=== PATIENT | male | born 1935 | race Caucasian/White ===

== ENCOUNTER → 2020-07-04 | Outpatient (CLI) | payer MEDICARE, OTHER ==
[~2020-07-04] MED LIST: ASCO500 PO; ASPI325 PO; ASPI325EC PO; ASPIR 8181 M1 PO; ATOR20 PO; CHOL10002 PO; Coumadin4 MG PO; DOCU100 PO; Hair, Skin & N1 EACH PO; IBUP800 PO; Isosorbide Mono30 MG PO; METO25ER PO; METO50ER PO; METOPROLOL SUCC25 MG PO; OXYC5 PO; Super B Comple150 MG PO; Toprol Xl50 MG PO; VIT1CAPS12 PO; WARF4 PO
[2020-07-04 11:04] LABS: BASOPHILS ABSOLUTE AUTO 0.05 K/mm3 (0.00-0.23); BASOPHILS PERCENT AUTO 1 % (0-2); EOSINOPHILS ABSOLUTE AUTO 0.09 K/mm3 (0.00-0.68); EOSINOPHILS PERCENT AUTO 2 % (0-6); Hematocrit 42.7 % (37.0-53.0); Hemoglobin 14.9 g/dL (13.5-17.5); IMMATURE GRAN ABSOLUTE AUTO 0.03 K/mm3 (0.00-0.10); IMMATURE GRAN PERCENT AUTO 1 % (0-1); LYMPHOCYTES ABSOLUTE AUTO 1.31 K/mm3 (0.84-5.20); LYMPHOCYTES PERCENT AUTO 23 % (21-46); MONOCYTES ABSOLUTE AUTO 0.38 K/mm3 (0.16-1.47); MONOCYTES PERCENT AUTO 7 % (4-13); Mean Corpuscular HGB 32.3 pg (26.0-34.0); Mean Corpuscular HGB Conc 34.9 g/dL (31.5-36.5); Mean Corpuscular Volume 93 fL (80-100); Mean Platelet Volume 9.4 fL (9.1-12.4); NEUTROPHILS ABSOLUTE AUTO 3.85 K/mm3 (1.96-9.15); NEUTROPHILS PERCENT AUTO 67 % (41-73); Platelet Count 285 K/mm3 (150-400); RDW Coefficient Variation 12.2 % (11.7-14.2); RDW Standard Deviation 41.1 fL (35.1-46.3); Red Blood Cell Count 4.61 M/mm3 (4.30-5.90); White Blood Cell Count 5.71 K/mm3 (4.00-11.30)
[2020-07-04 11:38] LABS: Alanine Aminotransfer (ALT/SGP 27 U/L (12-78); Albumin, Blood 3.9 g/dL (3.4-5.0); Alk Phos 73 U/L (40-126); Anion Gap 8 mmol/L (6-16); Aspartate Aminotrans (AST/SGOT 21 U/L (12-37); Bilirubin, Total 0.7 mg/dL (0.1-1.0); Blood Urea Nitrogen 18 mg/dL (8-24); Bun/Creatinine Ratio 20.2 (12.0-20.0); CO2, Blood 27 mmol/L (21-32); Calcium, Blood 9.3 mg/dL (8.5-10.1); Chloride, Blood 102 mmol/L (98-108); Creatinine, Blood 0.89 mg/dL (0.60-1.20); Globulin, Blood 3.8 g/dL (2.2-4.0); Glomerular Filtration Rate >60 (60-); Glucose, Blood 139 mg/dL (70-99); Magnesium, Blood 1.8 mg/dL (1.6-2.4); Sodium, Blood 137 mmol/L (136-145); Thyroid Stimulating Hormone 2.588 uIU/mL (0.360-4.800); Total Protein, Blood 7.7 g/dL (6.4-8.2)
[2020-07-04 11:39] LABS: Troponin I <0.017 ng/mL (0.000-0.040)
== END ==
LOC: LAB EV 10:57 → LAB SHORT 10:57
PROVIDERS: Physician Assistant Medical
DX: R53.83 Other fatigue (principal); R07.9 Chest pain, unspecified; R06.00 Dyspnea, unspecified
CPT/HCPCS: 80053; 83735; 83880; 84443; 84484; 85025

== ENCOUNTER 2021-02-23 10:12 | Emergency (ER) | payer MEDICARE, OTHER ==
[~2021-02-23] VITALS: Ht 182.9 cm; Wt 102.1 kg
[2021-02-23 10:52] LABS: BASOPHILS ABSOLUTE AUTO 0.03 K/mm3 (0.00-0.23); BASOPHILS PERCENT AUTO 1 % (0-2); EOSINOPHILS ABSOLUTE AUTO 0.15 K/mm3 (0.00-0.68); EOSINOPHILS PERCENT AUTO 3 % (0-6); Hematocrit 39.3 % (37.0-53.0); Hemoglobin 13.8 g/dL (13.5-17.5); IMMATURE GRAN ABSOLUTE AUTO 0.02 K/mm3 (0.00-0.10); IMMATURE GRAN PERCENT AUTO 0 % (0-1); LYMPHOCYTES ABSOLUTE AUTO 0.96 K/mm3 (0.84-5.20); LYMPHOCYTES PERCENT AUTO 19 % (21-46); MONOCYTES ABSOLUTE AUTO 0.46 K/mm3 (0.16-1.47); MONOCYTES PERCENT AUTO 9 % (4-13); Mean Corpuscular HGB 32.7 pg (26.0-34.0); Mean Corpuscular HGB Conc 35.1 g/dL (31.5-36.5); Mean Corpuscular Volume 93 fL (80-100); Mean Platelet Volume 9.4 fL (9.1-12.4); NEUTROPHILS ABSOLUTE AUTO 3.39 K/mm3 (1.96-9.15); NEUTROPHILS PERCENT AUTO 68 % (41-73); Platelet Count 174 K/mm3 (150-400); RDW Coefficient Variation 12.7 % (11.7-14.2); Red Blood Cell Count 4.22 M/mm3 (4.30-5.90); White Blood Cell Count 5.01 K/mm3 (4.00-11.30)
[2021-02-23 11:15] LABS: Alanine Aminotransfer (ALT/SGP 19 U/L (12-78); Albumin, Blood 3.6 g/dL (3.4-5.0); Alk Phos 64 U/L (50-136); Anion Gap 7 mmol/L (6-16); Aspartate Aminotrans (AST/SGOT 16 U/L (12-37); Bilirubin, Total 0.9 mg/dL (0.1-1.0); Blood Urea Nitrogen 25 mg/dL (8-24); Bun/Creatinine Ratio 24.3 (12.0-20.0); CO2, Blood 23 mmol/L (21-32); Calcium, Blood 8.6 mg/dL (8.5-10.1); Chloride, Blood 106 mmol/L (98-108); Creatinine, Blood 1.03 mg/dL (0.60-1.20); Globulin, Blood 3.5 g/dL (2.2-4.0); Glomerular Filtration Rate >60 (60-); Glucose, Blood 179 mg/dL (70-99); Potassium, Blood 3.5 mmol/L (3.5-5.5); Sodium, Blood 136 mmol/L (136-145); Total Protein, Blood 7.1 g/dL (6.4-8.2); Troponin I <0.015 ng/mL (0.000-0.040)
== END 2021-02-23 11:36 | disposition home or self-care (01) ==
LOC: ER 10:12
PROVIDERS: Emergency Medicine
DX: R06.00 Dyspnea, unspecified (principal); R19.7 Diarrhea, unspecified; Z79.82 Long term (current) use of aspirin
CPT/HCPCS: 36415; 71045; 80053; 83880; 84484; 85025; 93005; 93010; 99284-25

== ENCOUNTER 2022-04-03 17:01 | Emergency (ER) | payer MEDICARE, OTHER ==
[~2022-04-03] VITALS: Ht 182.9 cm; Wt 99.8 kg
[2022-04-03 19:28] LABS: BASOPHILS ABSOLUTE AUTO 0.05 K/mm3 (0.00-0.23); BASOPHILS PERCENT AUTO 1 % (0-2); EOSINOPHILS ABSOLUTE AUTO 0.12 K/mm3 (0.00-0.68); EOSINOPHILS PERCENT AUTO 2 % (0-6); Hematocrit 38.9 % (37.0-53.0); Hemoglobin 13.4 g/dL (13.5-17.5); IMMATURE GRAN ABSOLUTE AUTO 0.01 K/mm3 (0.00-0.10); IMMATURE GRAN PERCENT AUTO 0 % (0-1); LYMPHOCYTES ABSOLUTE AUTO 1.26 K/mm3 (0.84-5.20); LYMPHOCYTES PERCENT AUTO 22 % (21-46); MONOCYTES ABSOLUTE AUTO 0.37 K/mm3 (0.16-1.47); MONOCYTES PERCENT AUTO 6 % (4-13); Mean Corpuscular HGB 31.5 pg (26.0-34.0); Mean Corpuscular HGB Conc 34.4 g/dL (31.5-36.5); Mean Corpuscular Volume 92 fL (80-100); Mean Platelet Volume 9.4 fL (9.1-12.4); NEUTROPHILS ABSOLUTE AUTO 4.04 K/mm3 (1.96-9.15); NEUTROPHILS PERCENT AUTO 69 % (41-73); Platelet Count 201 K/mm3 (150-400); RDW Coefficient Variation 13.5 % (11.7-14.2); RDW Standard Deviation 45.5 fL (35.1-46.3); Red Blood Cell Count 4.25 M/mm3 (4.30-5.90); White Blood Cell Count 5.85 K/mm3 (4.00-11.30)
[2022-04-03 20:11] LABS: Albumin, Blood 3.5 g/dL (3.4-5.0); Albumin/Globulin Ratio 1.1 (0.8-1.8); Bilirubin, Total 0.6 mg/dL (0.1-1.0); Bun/Creatinine Ratio 30.3 (12.0-20.0); Calcium, Blood 8.9 mg/dL (8.5-10.1); Creatinine, Blood 0.76 mg/dL (0.60-1.20); Globulin, Blood 3.2 g/dL (2.2-4.0); Total Protein, Blood 6.7 g/dL (6.4-8.2)
[2022-04-03] MEDS ORDERED: Aspirin EC81 MG PO (22:01)
== END 2022-04-03 22:21 | disposition home or self-care (01) ==
LOC: ER 17:01
PROVIDERS: Emergency Medicine
DX: R07.89 Other chest pain (principal); R06.09 Other forms of dyspnea; Z79.899 Other long term (current) drug therapy; I25.10 Atherosclerotic heart disease of native coronary artery without angina pectoris
CPT/HCPCS: 71045; 80053; 83880; 84484; 85025; 93005; 93010; 99285-25; A9270

== ENCOUNTER 2023-03-20 13:04 | Inpatient (IN) | payer MEDICARE, OTHER ==
[~2023-03-20] VITALS: Ht 182.9 cm; Wt 93.3 kg
[~2023-03-20 13:04] MED LIST changes: +Aspirin EC81 MG PO
[2023-03-20 13:53] LABS: BASOPHILS ABSOLUTE AUTO 0.05 K/mm3 (0.00-0.23); BASOPHILS PERCENT AUTO 1 % (0-2); EOSINOPHILS ABSOLUTE AUTO 0.23 K/mm3 (0.00-0.68); EOSINOPHILS PERCENT AUTO 3 % (0-6); Hemoglobin 16.4 g/dL (13.5-17.5); IMMATURE GRAN ABSOLUTE AUTO 0.03 K/mm3 (0.00-0.10); IMMATURE GRAN PERCENT AUTO 0 % (0-1); LYMPHOCYTES ABSOLUTE AUTO 1.81 K/mm3 (0.84-5.20); LYMPHOCYTES PERCENT AUTO 20 % (21-46); MONOCYTES ABSOLUTE AUTO 0.53 K/mm3 (0.16-1.47); MONOCYTES PERCENT AUTO 6 % (4-13); Mean Corpuscular HGB 31.7 pg (26.0-34.0); Mean Corpuscular HGB Conc 35.7 g/dL (31.5-36.5); Mean Corpuscular Volume 89 fL (80-100); Mean Platelet Volume 9.7 fL (9.1-12.4); NEUTROPHILS ABSOLUTE AUTO 6.21 K/mm3 (1.96-9.15); NEUTROPHILS PERCENT AUTO 70 % (41-73); Platelet Count 221 K/mm3 (150-400); RDW Coefficient Variation 12.1 % (11.7-14.2); RDW Standard Deviation 39.7 fL (35.1-46.3); Red Blood Cell Count 5.18 M/mm3 (4.30-5.90); White Blood Cell Count 8.86 K/mm3 (4.00-11.30)
[2023-03-20 14:31] LABS: Albumin, Blood 3.7 g/dL (3.4-5.0); Albumin/Globulin Ratio 0.9 (0.8-1.8); Bilirubin, Total 1.5 mg/dL (0.1-1.0); Bun/Creatinine Ratio 23.1 (12.0-20.0); Calcium, Blood 9.3 mg/dL (8.5-10.1); Creatinine, Blood 1.21 mg/dL (0.60-1.20); Globulin, Blood 3.9 g/dL (2.2-4.0); Potassium, Blood 3.4 mmol/L (3.5-5.5); Total Protein, Blood 7.6 g/dL (6.4-8.2)
[2023-03-20 20:09] LABS: Anti-Xa UFH, PHA Monitoring <0.10 IU/mL; International Normalized Ratio 1.11; Prothrombin Time Results 11.6 Sec (9.7-11.5)
[2023-03-20] MEDS ORDERED: NEBIVOLOL HCL20 MG PO (20:33)
[2023-03-20] MEDS ORDERED: TRAM50 PO (20:36)
[2023-03-20] MEDS ORDERED: SPIRONOLACTONE25 MG PO (20:36)
[2023-03-20] MEDS ORDERED: FUROSEMIDE40 MG PO (20:36)
[2023-03-20] MEDS ORDERED: NEURONTIN300 MG PO (20:36)
--- NOTE | 2023-03-20 20:57 | NUR ---
CALL TO MD RECEIVED CALL FROM [facility] AND [facility] SCAN REPORT RECEIVED VIA FAX. COMMUNICATED IMPRESSION TO POLLO TREVINO AND WAS ADVISED TO ENSURE THAT THE HEPARIN GTT HAS BEEN STARTED PER PREVIOUS ORDER. UPDATED PRIMARY RN DARRYL WHO HAS YET TO RECEIVE THE PT FROM THE ED. VERIFIED THAT HEPARIN HAS BEEN CHARTED AGAINST BEING STARTED ALREADY.
[2023-03-20 21:20] VITALS: BP 132/63
[2023-03-20 23:35] VITALS: BP 123/56
[2023-03-21] VITALS (7 sets, daily range): BP systolic 89–121; BP diastolic 54–71
--- NOTE | 2023-03-21 05:24 | NUR ---
ADMIT / SHIFT SUMMARY PT TO UNIT VIA BED. AXO. PLEASANT. IN SR. NO CP / SOB. PT STATES THIS ONLY HAPPENS WITH EXERTION. PT ON HEPARIN GTT UPON ARRIVAL, ON HOLD FROM 0500 - 0600 THIS AM DUE TO LABS. NO OUTWARD S/SX BLEEDING NOTED. PT REMAINS ON RA. CONTINENT. VOIDING DARK YELLOW URINE. L DVT POSITIVE PER BEDSIDE ULTRASOUND. PT NPO SINCE MIDNIGHT THIS SHIFT JUST IN CASE OF PROCEDURE. OTHERISE, PT USING CALL LIGHT APPROPRIATELY. BED ALARM ON.
[2023-03-21 05:42] LABS: Bun/Creatinine Ratio 28.1 (12.0-20.0); Calcium, Blood 8.5 mg/dL (8.5-10.1); Magnesium, Blood 1.9 mg/dL (1.6-2.4); Potassium, Blood 3.5 mmol/L (3.5-5.5)
--- NOTE | 2023-03-21 11:40 | NUR ---
PT HYPOTENSIVE AT 89/54. NOTIFIED DR ALVA. ORDERS PENDING. PT ASYMPTOMATIC. BEDREST. CALL LIGHT IN REACH.
[2023-03-21 12:10] LABS: Hematocrit 38.6 % (37.0-53.0); Hemoglobin 13.7 g/dL (13.5-17.5); Mean Platelet Volume 9.8 fL (9.1-12.4); Platelet Count 173 K/mm3 (150-400)
--- NOTE | 2023-03-21 12:48 | NUR ---
stopped heparin infusion per orders.
--- NOTE | 2023-03-21 13:06 | NUR ---
PT C/O INCREASED SOB/WOB. STOPPED FLUIDS. BP 104/54, HR 56, 02 96% ON RA. RR 24. LCA. NOTIFIED DR ALVA. NEW FLUID ORDERS OBTAINED. PT CONTINUED TO SAY FEELS SOB, TACHYPNIC AT 24. PLACED ON 1L NC FOR COMFORT. PT RESTING IN BED, CALL LIGHT IN REACH.
--- NOTE | 2023-03-21 13:28 | NUR ---
BURDEN IN TO SEE PT ORDERS OBTAINED. REMOVED 02 PER PT REQUEST, FEELS ABLE TO BREATHE BETTER WITHOUT. 02 SATS >90 ON RA.
--- NOTE | 2023-03-21 13:57 | NUR ---
HEPARIN INFUSION RESTARTED AT 23 ML/HR PER PHARMACY ORDERS. VERIFIED INFUSION W/JEET CANDELARIA.
--- NOTE | 2023-03-21 14:06 | NUR ---
Brief supportive visit this afternoon. Spoke with Pt's Primary RN Charla and discussed case. Pt became SOB and is mildly anxious. Pt resting in bed and A&OX4. Pt appears dyspneic as evidenced by work of breathing and ability to speak in 2-3 word sentences only. Pt reports living at home with his spouse. He reports being for almost 65 years. He and his have 1 son who lives local and 2 twin daughters who live in [place]. He reports family is supportive. Spouse arrives to room. Reviewed plan of care with Pt and spouse. Offered therapeutic listening as Pt reports events leading up to hospital stay. Ended visit to allow Pt to rest. Pt agreeable for this RN to F/U tomorrow. Plan: Discussed code status and POLST when Pt's dyspnea improves. Palliative Care will remain available
--- NOTE | 2023-03-21 16:54 | NUR ---
OBSERVED APNEIC EPISODES WHILE PT SLEEPING PT DENIES ANY KNOWN HX OF SLEEP APNEA. OBSERVED MULTIPLE EPISODES OF 20 SECOND INTERVALS OF APNEA FOLLOWED BY DEEP INSPIRATIONS WHILE SLEEPING. PT'S SATS DROP BRIEFLY TO 87-88 THEN RETURN TO MID 90S. DISCUSSED WITH DR ALVA. PLACED PT ON 1L WHILE SLEEPS. CALL LIGHT IN REACH. PT DENIES ANY NEEDS AT THIS TIME.
--- NOTE | 2023-03-21 17:07 | NUR ---
SUMMARY PT RESTING WITH EYES CLOSED AT THIS TIME. 02 SATS 99% ON 1L NC. PT WAS HYPOTENSIVE AT NOON VITALS. CALLED DR ALVA AND 500 ML 1/2NS BOLUS ORDERED. BOLUS WAS INFUSING, PT BECAME SOB AND REPORTED "ACHE" IN CHEST. STOPPED BOLUS AND NOTIFIED DR ALVA. PLACED ON 02 FOR COMFORT BUT PT CONTINUED TO FEEL SOB. SATS WERE IN MID TO HIGH 90S DURING THIS TIME. LUNGS WERE CLEAR TO AUSCULTATION. WHEN PT'S SYMPTOMS DID NOT IMPROVE, DR ALVA CAME TO ASSESS PT AND AT THAT TIME, CRACKLES WERE NOTED. IV LASIX WAS ORDERED AND GIVEN. PT REPORTS BREATHING FEELS MUCH IMPROVED. VSS. PT HAS CRITICAL HIGH HEPARIN LEVEL; HEPARIN INFUSION STOPPED AT 1248 PER ORDERS AND RESTARTED AT 1348 AT 12 U/KG/HR PER ORDERS. PT SLEPT T/O AFTERNOON. NOTED TO HAVE PROLONGED APNEIC EPISODES (APPROX 20 SECONDS AT A TIME) FOLLOWED BUT MULTIPLE DEEP INSPIRATIONS. SATS WOULD DROP BRIEFLY TO 87-88% AND THEN RETURN TO MID 90S. REPORTED TO DR ALVA. PT DENIES ANY KNOWLEDGE OF SLEEP APNEA. PLACED ON 1L NC WHILE SLEEPS. CALL LIGHT IN REACH.
[2023-03-22] VITALS (56 sets, daily range): BP systolic 83–137; BP diastolic 36–90
[2023-03-22 02:08] LABS: BASOPHILS ABSOLUTE AUTO 0.06 K/mm3 (0.00-0.23); BASOPHILS PERCENT AUTO 1 % (0-2); EOSINOPHILS ABSOLUTE AUTO 0.25 K/mm3 (0.00-0.68); EOSINOPHILS PERCENT AUTO 4 % (0-6); Hematocrit 38.9 % (37.0-53.0); Hemoglobin 13.7 g/dL (13.5-17.5); IMMATURE GRAN ABSOLUTE AUTO 0.04 K/mm3 (0.00-0.10); IMMATURE GRAN PERCENT AUTO 1 % (0-1); LYMPHOCYTES ABSOLUTE AUTO 1.78 K/mm3 (0.84-5.20); LYMPHOCYTES PERCENT AUTO 26 % (21-46); MONOCYTES ABSOLUTE AUTO 0.43 K/mm3 (0.16-1.47); MONOCYTES PERCENT AUTO 6 % (4-13); Mean Corpuscular HGB 31.6 pg (26.0-34.0); Mean Corpuscular HGB Conc 35.2 g/dL (31.5-36.5); Mean Corpuscular Volume 90 fL (80-100); Mean Platelet Volume 9.4 fL (9.1-12.4); NEUTROPHILS ABSOLUTE AUTO 4.31 K/mm3 (1.96-9.15); NEUTROPHILS PERCENT AUTO 63 % (41-73); Platelet Count 175 K/mm3 (150-400); RDW Coefficient Variation 12.1 % (11.7-14.2); RDW Standard Deviation 40.2 fL (35.1-46.3); Red Blood Cell Count 4.34 M/mm3 (4.30-5.90); White Blood Cell Count 6.87 K/mm3 (4.00-11.30)
[2023-03-22 02:22] LABS: Albumin, Blood 3.2 g/dL (3.4-5.0); Anion Gap 7 mmol/L (6-16); Blood Urea Nitrogen 25 mg/dL (8-24); Bun/Creatinine Ratio 25.1 (12.0-20.0); CO2, Blood 25 mmol/L (21-32); Calcium, Blood 8.7 mg/dL (8.5-10.1); Chloride, Blood 111 mmol/L (98-108); Glomerular Filtration Rate 73 (60-); Glucose, Blood 154 mg/dL (70-99); Magnesium, Blood 1.8 mg/dL (1.6-2.4); Phosphorus, Blood 3.2 mg/dL (2.5-4.9); Potassium, Blood 3.7 mmol/L (3.5-5.5); Sodium, Blood 143 mmol/L (136-145)
--- NOTE | 2023-03-22 05:53 | NUR ---
SHIFT SUMMARY THIS RN ASSUMED CARE OF PATIENT AT 1900. NO ACUTE CHANGES OVERNIGHT. PT DENIED CHEST PAIN/PRESSURE AND SOB THROUGHOUT THIS SHIFT. REMAINED ON 1L VIA NC WHILE SLEEPING. SPO2 >92%. BP STABLE. SB/SR ON MONITOR WITH 1ST DEGREE HB. AFEBRILE. HEP GTT INFUSING PER EMAR. PT USING URINAL INDEPENDENTLY. REPOSITIONING SELF IN BED. ALERT AND ORIENTED FULLY AND ABLE TO MAKE NEEDS KNOWN. BED IN LOWEST POSITION AND CALL LIGHT WITHIN REACH. THIS RN WILL CONTINUE TO MONITOR UNTIL SHIFT CHANGE AT 0700.
--- NOTE | 2023-03-22 09:41 | NUR ---
FIRE ASSESSMENT/EDUCATION PT ASSESSED FOR SMOKING OR IGNITION RISK DEVICES, PT A NON-SMOKER AND NO DEVICES REPORTED. PT EDUCATED THAT [facility] IS A NON-SMOKING FACILITY AND FIRE RISKS.
[2023-03-22] MEDS ORDERED: Acetaminophen650 M1 PO (10:32)
--- NOTE | 2023-03-22 10:32 | NUR ---
PATIENT AND FAMILY EDUCATED RE: IGNITION SOURCES AND RISK OF INJURY WHILE OXYGEN IS IN USE. PATIENT REPORTS HAVING A HISTORY OF SMOKING BUT CURRENTLY DOES NOT AND HAS NOT SMOKED FOR 20+ YEARS. HOWEVER, PATIENT IS ON NC OXYGEN ONLY WHILE SLEEPING. PATIENT AND FAMILY VERBALIZED UNDERSTANDING OF EDUCATION AND HAD NO FURTHER QUESTIONS AT THIS TIME.
--- NOTE | 2023-03-22 10:57 | NUR ---
F/U visit this AM. Spoke with Dr Wadsworth and discussed case. Pt to D/C today and may benefit from completing POLST. Pt just returned from home O2 evaluation. Pt appears mildly SOB. Engaged in therapeutic conversation regarding code status wishes. Educated on life sustaining treatments including risks and implications to CPR. Offered therapeutic listening and answered questions. Assisted Pt with completing POLST. Pt's wishes on POLST are DNR and Limited Interventions. Pt expresses appreciation and reports no other concerns at this time. Dr Wadsworth signs POLST. Obtained copy of POLST and tubed to medical records. Original POLST placed in Pt's belongings bag to go home with Pt. Instructed Pt to hang on refridgerator at home. Palliative Care will remain available
--- NOTE | 2023-03-22 12:04 | NUR ---
UPDATE PT FAMILY ASKED FOR A WARM BLANKET AT NURSES STATION AT 1120 AND REPORTED THAT THE PT IS "TREMBLING" FROM BEING COLD. THIS RN AND EXECUTIVE TEAM LEADER ENTERED ROOM TO FIND PT SITTING IN RELCINER SHIVERING. PT REPROTED "I FEEL REALLY COLD." BLOOD SUGAR CHECKED WARM BLANKET WAS SUPPLIED, BLOOD SUGAR OF 188. PT ASSISTED FROM CHAIR TO BED, UNSTEADY ON HIS FEET. ONCE PT WAS SITTING AT EDGE OF BED A SET OF VITALS WERE TAKEN TEMPORAL TEMP OF 98.5, HR 87 WITH PVC'S, RESP AT 22, BP OF 137/90, AND O2 SAT OF 93 ON RA. PT PROVIDED TWO ADDITIONAL WARM BLANKETS. SHIVERING CONTINUED AND ORAL TEMP CHECKED AT 1202, TEMP OF 98.2. MD NOTIFIED IN PCU DOCTOR DICTATION AREA. MD AND THIS RN ENTERED PT ROOM FOR ASSESSMENT. PT AND FAMILY SPOKE WITH DOCTOR. DISCHARGE ON STANDBY AT THIS TIME UNTIL MD CLEARS PT FOR DISCHARGE. WILL CONTINUE TO MONITOR.
--- NOTE | 2023-03-22 12:38 | NUR ---
UPDATE PT CURRENTLY RESTING COMFORTABLY IN BED. SHIVERING APPEARS TO HAVE STOPPED. VSS WITH 02 SATS IN THE 90'S ON RA. RESP RATE AT 18BPM.
[2023-03-22 14:19] LABS: BASOPHILS ABSOLUTE AUTO 0.03 K/mm3 (0.00-0.23); BASOPHILS PERCENT AUTO 0 % (0-2); EOSINOPHILS ABSOLUTE AUTO 0.01 K/mm3 (0.00-0.68); EOSINOPHILS PERCENT AUTO 0 % (0-6); Hematocrit 39.9 % (37.0-53.0); Hemoglobin 14.3 g/dL (13.5-17.5); IMMATURE GRAN ABSOLUTE AUTO 0.02 K/mm3 (0.00-0.10); IMMATURE GRAN PERCENT AUTO 0 % (0-1); LYMPHOCYTES ABSOLUTE AUTO 0.26 K/mm3 (0.84-5.20); LYMPHOCYTES PERCENT AUTO 4 % (21-46); MONOCYTES ABSOLUTE AUTO 0.13 K/mm3 (0.16-1.47); MONOCYTES PERCENT AUTO 2 % (4-13); Mean Corpuscular HGB 31.6 pg (26.0-34.0); Mean Corpuscular HGB Conc 35.8 g/dL (31.5-36.5); Mean Corpuscular Volume 88 fL (80-100); Mean Platelet Volume 9.7 fL (9.1-12.4); NEUTROPHILS ABSOLUTE AUTO 6.64 K/mm3 (1.96-9.15); NEUTROPHILS PERCENT AUTO 94 % (41-73); Platelet Count 156 K/mm3 (150-400); RDW Coefficient Variation 12.1 % (11.7-14.2); RDW Standard Deviation 39.1 fL (35.1-46.3); Red Blood Cell Count 4.53 M/mm3 (4.30-5.90); White Blood Cell Count 7.09 K/mm3 (4.00-11.30)
[2023-03-22 14:56] LABS: Albumin, Blood 3.4 g/dL (3.4-5.0); Anion Gap 9 mmol/L (6-16); Blood Urea Nitrogen 23 mg/dL (8-24); Bun/Creatinine Ratio 25.1 (12.0-20.0); CO2, Blood 21 mmol/L (21-32); Calcium, Blood 9.1 mg/dL (8.5-10.1); Chloride, Blood 111 mmol/L (98-108); Creatinine, Blood 0.92 mg/dL (0.60-1.20); Glomerular Filtration Rate 81 (60-); Glucose, Blood 163 mg/dL (70-99); Phosphorus, Blood 0.9 mg/dL (2.5-4.9); Potassium, Blood 3.2 mmol/L (3.5-5.5); Sodium, Blood 141 mmol/L (136-145)
--- NOTE | 2023-03-22 15:56 | NUR ---
AT 1000, GAVE A VERBAL ORDER TO STOP HEPARIN GTT AND GIVE 15MG PO XARELTO THAT IS FROM A SAMPLE PACKAGE TO ASSESS AND TEACH PT TO TAKE DOSES PROPERLY FOR DISCHARGE. HEPARIN STOPPED AND XARELTO GIVEN WITH PT TEACH BACK . PT WALKED AROUND PCU BRIEFLY WITH RT FOR A O2 EVAL FOR PREPARATION OF BEING DISCHARGED. AFTER O2 EVAL, PT BEGAN TO HAVE TREMORS, SEE PREVIOUS NOTES. STARTING AROUND 1120, PT HR NOTICED TO HAVE FREQUENT PVC'S. AFTER FAMILY LEFT PT ROOM AROUND 1200, PT WAS ABLE TO REST. PT PHONE WAS HEARD RINGING MULTIPLE TIMES AT ABOUT 1300, PT WAS NOT WAKING TO ANSWER. THIS RN ENTERED ROOM TO WAKE PT FOR PHONE CALL. PT WAS DIFFICULT TO WAKE AND WAS DISORIENTED TO THE POINT THAT HE COULD NOT GRABL HIS CELL PHONE AND ANSWER IT. THIS RN ANSWERED IT FOR PT AFTER ASKING IF HE WOULD LIKE HELP. PT WAS ATTEMPTING TO CONVERSE WITH HIS BUT WAS MUMBLING AND UNABLE TO SAY FULL SENTENCES. PT ASKED TO TALK WITH THE NURSE. THIS RN ANSWERED PT PHONE AND PT DEMANDED THIS RN CONTACT PT DOCTOR, DOCTOR CONTACTED. MD ARRIVED TO PT ROOM PROMPTLY AND WAS UPDATED ON PT SITUATION. MD PLACED STAT ORDERS, FAMILY ARRIVED AND WAS INFORMED OF CURRENT SITUATION AND PLAN. PT BP'S GRADUALLY DECLINED FROM 130'S TO 80-90'S WITH MAPS RANGING 61-66, MD NOTIFIED. NEW ORDERS PLACED BY . MD ORDERED HEPARIN TO BE STARTED AGAIN, PHARMACY NOTIFED OF HEPARIN BEING RESTARTED AND THE ORAL DOSE OF XARELTO. ICU FIELD APPRAISER CONTACTED AT ROUGHLY 1520 TO COME SEE PT JUST IN CASE PT WAS TO DECLINE MORE. AT 1620 PHARMACY CONTACTED THIS RN VIA VOICERA TO HAVE HEPARIN PUT ON STANDYBY UNTILL 2200 WHEN NEXT XARELTO DOSE WAS SCHEDULED TO BE GIVEN. HEPARIN ON STANDBY AT 1620.
--- NOTE | 2023-03-22 19:43 | NUR ---
SHIFT SUMMARY AT BEGINNING OF SHIFT, PT A/OX3-4 CONFUSED AT TIMES. VSS DURING MORNING ASSESSMENT. PT WAS PREPARED TO BE DISCHARGED ON XARELTO THIS MORNING. AFTER DOING A O2 EVAL, PT BEGAN TO DECLINE, SEE PREVIOUS NOTES. PT BP'S LABILE TOWARDS END OF SHIFT, MOSTLY SOFT BP'S WITH LOW MAPS. PT HR STABLE BUT HAS PERIODS OF FREQUENT PVC'S. PT HAS APNEIC PERIODS WHEN SLEEPING THAT BRING SATS TO THE 80'S BUT PT SATS RETURN QUICKLY TO THE 90'S, 1L NC APPLIED WHILE PT SLEEPING. DR AT BEDSIDE MULTIPLE TIMES DURING SHIFT AND UPDATED FAMILY. ICU CHARGE UPDATED ON PT SITUATION. PT WAS FEBRILE WITH A TEMP REACHING 101.5. IV ABX RUNNING PER ORDERS. 1/2NS RUNNING PER ORDERS. HEPARIN TO RESUME AT 2200, RN NOTIFIED. POWERGLIDE PLACED FOR ADDITIONAL IV ACCESS IN [facility].
--- NOTE | 2023-03-22 21:00 | NUR ---
ASSUMED CARE PT IS A&O X2-3; PT HAS INTERMITTENT CONFUSION AND WILL OCCASIONALLY MUMBLE WORDS. PT IS ORIENTED TO SELF, LOCATION, AND CURRENT PRESIDENT, BUT DOES NOT KNOW WHAT YEAR IT IS. PT ANSWERS QUESTIONS APPROPRIATELY, BUT WILL INTERMITTENTLY FIND DIFFICULTY IN ARTICULATING WORDS AND WILL MUMBLE. PERRLA; SPO2 >92% ON 2L NC; MAP >65 (SOFT BP). PT DENIES CP, SOB, OR NAUSEA. AT START OF SHIFT PT STATED HE HAD A CASTANON, BUT IT HAS SINCE RESOLVED. PT CURRENTLY RESTING QUIETLY AT BEDSIDE W/ SON IN ROOM. PT AND FAMILY EDUCATED ON DANGERS OF OXYGEN USE AND SMOKING; PT/FAMILY DENY HAVING ANY SMOKING PARAPHENILIA.
[2023-03-22 23:10] LABS: Source, Urine Foley catheter
[2023-03-22 23:14] LABS: Bilirubin, Urine Neg (Neg); Blood, Urine 5+ (Neg); Glucose Qualitative, Urine Neg (Neg); Ketones, Urine Neg (Neg); Leukocyte Esterase, Urine 1+ (Neg); Nitrite, Urine Neg (Neg); Protein, Urine 1+ (Neg); Urobilinogen, Urine 1+ (Normal)
[2023-03-22 23:17] LABS: Appearance, Urine Clear (Clear); Color, Urine Yellow (P-Yellow)
[2023-03-22 23:20] LABS: Bacteria Few /hpf; Red Blood Cells, Urine TNTC /hpf (0-2); Squamous Epithelial Cells Few /hpf (Few); White Blood Cells, Urine 0-2 /hpf (0-5)
[2023-03-22 23:25] LABS: Other Crystals Few /hpf
--- NOTE | 2023-03-22 23:25 | NUR ---
UPDATE PT FAMILY STATES THAT THE PT'S MENTATION IS SIMILAR TO BASELINE, JUST MORE SEVERE. AT TIME OF THIS NOTE, PT'S SON SAYS THAT THE PT APPEARS "BETTER" AND CLOSER TO BASELINE. PT IS TREMULOUS.
[2023-03-23] VITALS (20 sets, daily range): BP systolic 87–128; BP diastolic 44–78
[2023-03-23 04:05] LABS: BASOPHILS ABSOLUTE AUTO 0.04 K/mm3 (0.00-0.23); BASOPHILS PERCENT AUTO 0 % (0-2); EOSINOPHILS ABSOLUTE AUTO 0.24 K/mm3 (0.00-0.68); EOSINOPHILS PERCENT AUTO 2 % (0-6); Hematocrit 35.8 % (37.0-53.0); Hemoglobin 12.6 g/dL (13.5-17.5); IMMATURE GRAN ABSOLUTE AUTO 0.05 K/mm3 (0.00-0.10); IMMATURE GRAN PERCENT AUTO 0 % (0-1); LYMPHOCYTES ABSOLUTE AUTO 0.72 K/mm3 (0.84-5.20); LYMPHOCYTES PERCENT AUTO 6 % (21-46); MONOCYTES ABSOLUTE AUTO 0.45 K/mm3 (0.16-1.47); MONOCYTES PERCENT AUTO 4 % (4-13); Mean Corpuscular HGB 31.6 pg (26.0-34.0); Mean Corpuscular HGB Conc 35.2 g/dL (31.5-36.5); Mean Corpuscular Volume 90 fL (80-100); Mean Platelet Volume 9.8 fL (9.1-12.4); NEUTROPHILS ABSOLUTE AUTO 10.14 K/mm3 (1.96-9.15); NEUTROPHILS PERCENT AUTO 87 % (41-73); Platelet Count 145 K/mm3 (150-400); RDW Coefficient Variation 12.3 % (11.7-14.2); RDW Standard Deviation 40.4 fL (35.1-46.3); Red Blood Cell Count 3.99 M/mm3 (4.30-5.90); White Blood Cell Count 11.64 K/mm3 (4.00-11.30)
[2023-03-23 04:28] LABS: Magnesium, Blood 1.9 mg/dL (1.6-2.4)
[2023-03-23 04:31] LABS: Albumin, Blood 2.8 g/dL (3.4-5.0); Bilirubin, Total 1.6 mg/dL (0.1-1.0); Bun/Creatinine Ratio 20.3 (12.0-20.0); Calcium, Blood 8.3 mg/dL (8.5-10.1); Creatinine, Blood 1.18 mg/dL (0.60-1.20); Globulin, Blood 2.9 g/dL (2.2-4.0); Phosphorus, Blood 3.4 mg/dL (2.5-4.9); Potassium, Blood 3.9 mmol/L (3.5-5.5); Thyroid Stimulating Hormone 0.942 uIU/mL (0.360-4.800); Total Protein, Blood 5.7 g/dL (6.4-8.2)
--- NOTE | 2023-03-23 04:37 | NUR ---
SHIFT SUMMARY PT SLEPT WELL T/O NIGHT. SPO2 >92% ON 1L NC; MAP >65. PT DENIES CP, SOB, OR NAUSEA. MENTATION APPEARS TO CONTINUE TO IMPROVE SINCE INITIAL ASSESSMENT. NO ACUTE EVENTS OVERNIGHT. HICKS CATHETER IN PLACE AND DRAINING TO GRAVITY.
--- NOTE | 2023-03-23 15:52 | NUR ---
SHIFT SUMMARY - PT SLEEPY BUT EASILY AROUSABLE. ORIENTED X3. WEAK IN ALL EXTREMITIES. HICKS CATHETER IN PLACE FOR ACCURATE I&O'S. PT AND FAMILY EDUCATED ON IGNITION RISK AND DENIES ANY FIRE STARTING MATERIALS. ON 1-2L NC. SR/PVCS ON TELEMETRY. SPOKE WITH DR. ALVA @ 4215 REGARDING PT WITH LOW UOP FROM HICKS - 160ML THIS SHIFT, WELL TRENDING SOFT BPS AND HR IN THE 50S. PT REMAINS SLEEPY BUT AROUSABLE, AT BEDSIDE. PER DR. ALVA, WILL BE IN TO SEE PATIENT SHORTLY.
[2023-03-23 16:52] LABS: Albumin, Blood 2.7 g/dL (3.4-5.0); Anion Gap 7 mmol/L (6-16); Blood Urea Nitrogen 23 mg/dL (8-24); Bun/Creatinine Ratio 17.6 (12.0-20.0); CO2, Blood 22 mmol/L (21-32); Chloride, Blood 112 mmol/L (98-108); Creatinine, Blood 1.31 mg/dL (0.60-1.20); Glomerular Filtration Rate 53 (60-); Glucose, Blood 150 mg/dL (70-99); Phosphorus, Blood 3.7 mg/dL (2.5-4.9); Potassium, Blood 3.7 mmol/L (3.5-5.5); Sodium, Blood 141 mmol/L (136-145)
[2023-03-24] VITALS (7 sets, daily range): BP systolic 93–114; BP diastolic 49–74
[2023-03-24 03:16] LABS: BASOPHILS ABSOLUTE AUTO 0.04 K/mm3 (0.00-0.23); BASOPHILS PERCENT AUTO 1 % (0-2); EOSINOPHILS PERCENT AUTO 4 % (0-6); Hematocrit 33.5 % (37.0-53.0); Hemoglobin 11.8 g/dL (13.5-17.5); IMMATURE GRAN ABSOLUTE AUTO 0.02 K/mm3 (0.00-0.10); IMMATURE GRAN PERCENT AUTO 0 % (0-1); LYMPHOCYTES ABSOLUTE AUTO 1.19 K/mm3 (0.84-5.20); LYMPHOCYTES PERCENT AUTO 17 % (21-46); MONOCYTES ABSOLUTE AUTO 0.57 K/mm3 (0.16-1.47); MONOCYTES PERCENT AUTO 8 % (4-13); Mean Corpuscular HGB 31.7 pg (26.0-34.0); Mean Corpuscular HGB Conc 35.2 g/dL (31.5-36.5); Mean Corpuscular Volume 90 fL (80-100); Mean Platelet Volume 9.7 fL (9.1-12.4); NEUTROPHILS ABSOLUTE AUTO 4.84 K/mm3 (1.96-9.15); NEUTROPHILS PERCENT AUTO 70 % (41-73); Platelet Count 131 K/mm3 (150-400); RDW Coefficient Variation 12.2 % (11.7-14.2); RDW Standard Deviation 40.2 fL (35.1-46.3); Red Blood Cell Count 3.72 M/mm3 (4.30-5.90); White Blood Cell Count 6.96 K/mm3 (4.00-11.30)
[2023-03-24 03:43] LABS: Vancomycin, Trough 17.7 ug/mL (5.0-10.0)
[2023-03-24 03:52] LABS: Creatinine, Blood 1.36 mg/dL (0.60-1.20)
--- NOTE | 2023-03-24 05:51 | NUR ---
SHIFT SUMMARY: Pt is drowsy yet arousable to voice and oriented x3. MAPs overnight were between 65-80. He has been bradycardic with frequent PVCs. On 2L due to desats to 87% while sleeping, on room air when awake. Patel in place. Heparin drip increased to 13 units/kg/hr this AM.
[2023-03-24 06:16] LABS: Albumin, Blood 2.7 g/dL (3.4-5.0); Anion Gap 10 mmol/L (6-16); Blood Urea Nitrogen 23 mg/dL (8-24); Bun/Creatinine Ratio 16.9 (12.0-20.0); CO2, Blood 21 mmol/L (21-32); Calcium, Blood 8.3 mg/dL (8.5-10.1); Chloride, Blood 111 mmol/L (98-108); Glucose, Blood 132 mg/dL (70-99); Phosphorus, Blood 3.5 mg/dL (2.5-4.9); Potassium, Blood 3.6 mmol/L (3.5-5.5); Sodium, Blood 142 mmol/L (136-145)
[2023-03-24 06:30] LABS: Glomerular Filtration Rate 51 (60-)
--- NOTE | 2023-03-24 17:46 | NUR ---
Shift summary. Pt up to chair since noon, able to ambulate with walker and standby assist. Pt worked well with PT this shift, remains in chair. No other acute changes. See assessment/chart for further details. Will continue to monitor and report off to nightshift RN.
[2023-03-25 03:17] VITALS: BP 136/69
[2023-03-25 03:36] LABS: BASOPHILS ABSOLUTE AUTO 0.03 K/mm3 (0.00-0.23); BASOPHILS PERCENT AUTO 1 % (0-2); EOSINOPHILS ABSOLUTE AUTO 0.32 K/mm3 (0.00-0.68); EOSINOPHILS PERCENT AUTO 6 % (0-6); Hematocrit 33.2 % (37.0-53.0); Hemoglobin 11.8 g/dL (13.5-17.5); IMMATURE GRAN ABSOLUTE AUTO 0.02 K/mm3 (0.00-0.10); IMMATURE GRAN PERCENT AUTO 0 % (0-1); LYMPHOCYTES PERCENT AUTO 25 % (21-46); MONOCYTES PERCENT AUTO 8 % (4-13); Mean Corpuscular HGB 31.6 pg (26.0-34.0); Mean Corpuscular HGB Conc 35.5 g/dL (31.5-36.5); Mean Corpuscular Volume 89 fL (80-100); Mean Platelet Volume 10.1 fL (9.1-12.4); NEUTROPHILS ABSOLUTE AUTO 3.11 K/mm3 (1.96-9.15); NEUTROPHILS PERCENT AUTO 60 % (41-73); Platelet Count 132 K/mm3 (150-400); RDW Coefficient Variation 12.2 % (11.7-14.2); RDW Standard Deviation 39.8 fL (35.1-46.3); Red Blood Cell Count 3.73 M/mm3 (4.30-5.90); White Blood Cell Count 5.18 K/mm3 (4.00-11.30)
[2023-03-25 04:00] LABS: Albumin, Blood 2.6 g/dL (3.4-5.0); Anion Gap 5 mmol/L (6-16); Blood Urea Nitrogen 20 mg/dL (8-24); Bun/Creatinine Ratio 15.7 (12.0-20.0); CO2, Blood 24 mmol/L (21-32); Calcium, Blood 8.3 mg/dL (8.5-10.1); Chloride, Blood 112 mmol/L (98-108); Creatinine, Blood 1.27 mg/dL (0.60-1.20); Glomerular Filtration Rate 55 (60-); Glucose, Blood 135 mg/dL (70-99); Phosphorus, Blood 2.8 mg/dL (2.5-4.9); Potassium, Blood 3.7 mmol/L (3.5-5.5); Sodium, Blood 141 mmol/L (136-145); Vancomycin, Trough 19.5 ug/mL (5.0-10.0)
--- NOTE | 2023-03-25 05:03 | NUR ---
SHIFT SUMMARY PT REMAINS A/Ox3-4 AND COOPERATIVE WITH CARE. CAN BE CONFUSED AT TIME, BUT IS EASILY REDIRECTABLE. ANSWERS MOST QUESTIONS APPROPRIATELY AND ABLE TO MAKE HIS NEEDS KNOWN. NO ACUTE EVENTS OVERNIGHT FOR PT WAS ABLE TO SLEEP T/O MOST OF THE SHIFT. CARDIAC TRUONG, REMAINS IN SB 40-50'S T/O THE NIGHT WITH NO C/O CP, PRESSURE, OR DIZZINESS. SBP HAS BEEN STABLE WELL RANGING 100-130'S. RESPIRATORY, MAINTAINS SPO2 >94% ON RA WITH NO REPORTS OF SOB OR DYSPNEA. GI/, ABLE TO ABULATE TO BATHROOM TO VOID/BM. ABLE TO IND. USE URINAL AT BESIDE WELL. HEPARIN HAS BEEN MANAGED VIA PHARMACY, CONTINUES TO INFUSE PER EMAR. ASSESSED PT FOR RISKS OF ANY IGNITION SOURCES WELL BEHAVIORS FOR INCREASED RISKS OF FIRE DANGER. PT EDUCATED ON COMMON SOURCES OF IGNITION WELL NEED TO KEEP A SAFE ENVIRONMENT. NO NEW ORDERS AT THIS TIME, WILL REPORT TO ONCOMING RN. JOSE GARCIA OF THIS NOTE.
--- NOTE | 2023-03-25 07:11 | NUR ---
Bedside report from JEET Correia. Pt states he hopes to go home today. Sitting up in bed, alert oriented and pleasantly conversant. States he is ready to go home because "I'm just lying around here now."
[2023-03-25 07:15] VITALS: BP 147/71
--- NOTE | 2023-03-25 08:47 | NUR ---
spoke with Dominique pharmacist. PTT therapeutic at 86.6; heparin gtt continuing at 15 u/kg/hour.
[2023-03-25 10:49] VITALS: BP 118/64
[2023-03-25 15:26] VITALS: BP 116/60
[2023-03-25 19:36] VITALS: BP 122/62
[2023-03-26 00:41] VITALS: BP 120/72
[2023-03-26 03:59] VITALS: BP 109/62
--- NOTE | 2023-03-26 05:01 | NUR ---
SHIFT SUMMARY PT REMAINS A/Ox3-4 AND COOPERATIVE WITH CARE. CAN BE CONFUSED AT TIMES, BUT IS EASILY REDIRECTABLE. ANSWERS MOST QUESTIONS APPROPRIATELY AND ABLE TO MAKE HIS NEEDS KNOWN. NO ACUTE EVENTS OVERNIGHT FOR PT WAS ABLE TO SLEEP T/O MOST OF THE SHIFT. CARDIAC TRUONG, REMAINS IN SB 40-50'S T/O THE NIGHT WITH NO C/O CP, PRESSURE, OR DIZZINESS. SBP HAS BEEN STABLE WELL RANGING 100-130'S. RESPIRATORY, MAINTAINS SPO2 >94% ON RA WITH NO REPORTS OF SOB OR DYSPNEA. GI/, ABLE TO ABULATE TO BATHROOM TO VOID/BM. USES URINAL AT BESIDE WELL. HEPARIN gtt OFF ONCE ELIQUIS WAS GIVEN YESTERDAY PM. ASSESSED PT FOR RISKS OF ANY IGNITION SOURCES WELL BEHAVIORS FOR INCREASED RISKS OF FIRE DANGER. PT EDUCATED ON COMMON SOURCES OF IGNITION WELL NEED TO KEEP A SAFE ENVIRONMENT. PLAN FOR D/C HOME THIS AM. NO NEW ORDERS AT THIS TIME, WILL REPORT TO ONCOMING RN. JOSE GARCIA OF THIS NOTE.
[2023-03-26 05:08] LABS: BASOPHILS ABSOLUTE AUTO 0.04 K/mm3 (0.00-0.23); BASOPHILS PERCENT AUTO 1 % (0-2); EOSINOPHILS ABSOLUTE AUTO 0.31 K/mm3 (0.00-0.68); EOSINOPHILS PERCENT AUTO 7 % (0-6); Hemoglobin 11.7 g/dL (13.5-17.5); IMMATURE GRAN ABSOLUTE AUTO 0.02 K/mm3 (0.00-0.10); IMMATURE GRAN PERCENT AUTO 0 % (0-1); LYMPHOCYTES ABSOLUTE AUTO 1.35 K/mm3 (0.84-5.20); LYMPHOCYTES PERCENT AUTO 30 % (21-46); MONOCYTES ABSOLUTE AUTO 0.29 K/mm3 (0.16-1.47); MONOCYTES PERCENT AUTO 6 % (4-13); Mean Corpuscular HGB 31.3 pg (26.0-34.0); Mean Corpuscular HGB Conc 35.5 g/dL (31.5-36.5); Mean Corpuscular Volume 88 fL (80-100); Mean Platelet Volume 10.5 fL (9.1-12.4); NEUTROPHILS ABSOLUTE AUTO 2.56 K/mm3 (1.96-9.15); NEUTROPHILS PERCENT AUTO 56 % (41-73); Platelet Count 149 K/mm3 (150-400); RDW Standard Deviation 38.9 fL (35.1-46.3); Red Blood Cell Count 3.74 M/mm3 (4.30-5.90); White Blood Cell Count 4.57 K/mm3 (4.00-11.30)
[2023-03-26 06:00] LABS: Bun/Creatinine Ratio 12.7 (12.0-20.0); Calcium, Blood 8.4 mg/dL (8.5-10.1); Creatinine, Blood 1.18 mg/dL (0.60-1.20); Potassium, Blood 3.5 mmol/L (3.5-5.5)
[2023-03-26 08:06] VITALS: BP 122/76
--- NOTE | 2023-03-26 09:24 | NUR ---
CARE ASSUMPTION / FIRE ASSESSMENT PT A&O X4. VSS. SPO2 > 92% ON RA. MONITOR SHOWING SB, HR 50s. PT AMBULATING WELL INDEPENDENTLY. NURSE SBA FOR LINE MANAGEMENT. FIRE IGNITION ASSESSMENT PERFORMED AGAIN. PT STILL IS A NONSMOKER & STILL DOES NOT HAVE FIRE IGNITING ITEMS AMONGST BELONGINGS. PT GUEST ALSO DENYING & STATING "HOW RIDICULOUS YOU GUYS ARE STILL HAVING TO DO THAT."
[2023-03-26] MEDS ORDERED: ELIQUIS5 M2 PO (10:02)
[2023-03-26] MEDS ORDERED: POTA10T PO (10:06)
--- NOTE | 2023-03-26 12:59 | NUR ---
DISCHARGE HOME PT A&O X4. VSS. SPO2 > 92% ON RA. DISCHARGE INSTRUCTIONS REVIEWED W/ PT & PT FAMILY & SENT HOME W/ PT. IVs REMOVED. PT TAKEN OUT BY WHEELCHAIR W/ BELONGINGS @ APPROX 1300.
== END 2023-03-26 12:57 | disposition home or self-care (01) | DRG 175 ==
LOC: ER 13:04 → PCU 20:17
PROVIDERS: Emergency Medicine; Family Medicine; Internal Medicine; Nurse Practitioner Acute Care; ADMIT Internal Medicine
PROC: 3E03329 Introduction of Other Anti-infective into Peripheral Vein, Percutaneous Approach (ICD-10-PCS; principal; 2023-03-22)
PROC: 0T9B70Z Drainage of Bladder with Drainage Device, Via Natural or Artificial Opening (ICD-10-PCS; 2023-03-22)
DX: I26.99 Other pulmonary embolism without acute cor pulmonale (principal); A41.9 Sepsis, unspecified organism; I20.0 Unstable angina; I82.412 Acute embolism and thrombosis of left femoral vein; I82.432 Acute embolism and thrombosis of left popliteal vein; I50.30 Unspecified diastolic (congestive) heart failure; I11.0 Hypertensive heart disease with heart failure; E87.6 Hypokalemia; E11.9 Type 2 diabetes mellitus without complications; R79.89 Other specified abnormal findings of blood chemistry; R09.89 Other specified symptoms and signs involving the circulatory and respiratory systems; G47.30 Sleep apnea, unspecified; E83.39 Other disorders of phosphorus metabolism; M19.90 Unspecified osteoarthritis, unspecified site; Z96.653 Presence of artificial knee joint, bilateral; Z79.82 Long term (current) use of aspirin; Z79.899 Other long term (current) drug therapy; Z98.41 Cataract extraction status, right eye; Z98.42 Cataract extraction status, left eye; Z98.890 Other specified postprocedural states
CPT/HCPCS: 36415; 70450; 71045; 71046; 71260; 80048; 80053; 80069; 80202; 81001; 82330; 82947; 83605; 83735; 83880; 84100; 84145; 84443; 84484; 85014; 85018; 85025; 85049; 85379; 85520; 85610; 85730; 87040; 93005; 93010; 93306; 93970; 94761; 94762; 96374; 97112; 97116; 97161; 99285-25; A9270; C1751; J1644; J1940; J2543; J3370; J3475; J7030; J7040; J7050; Q9967

== ENCOUNTER 2023-04-20 12:35 | Emergency (ER) | payer MEDICARE, OTHER ==
[~2023-04-20] VITALS: Ht 182.9 cm; Wt 95.7 kg
[~2023-04-20 12:35] MED LIST changes: +Acetaminophen650 M1 PO; +ELIQUIS5 M2 PO; +FUROSEMIDE40 MG PO; +NEBIVOLOL HCL20 MG PO; +NEURONTIN300 MG PO; +POTA10T PO; +SPIRONOLACTONE25 MG PO; +TRAM50 PO
[2023-04-20] MEDS ORDERED: KLOR-CON 1010 ME9 PO (13:01)
[2023-04-20] MEDS ORDERED: NEBIVOLOL HCL20 MG PO (13:01)
[2023-04-20] MEDS ORDERED: ATORVASTATIN CA20 MG PO (13:02)
[2023-04-20 13:51] LABS: BASOPHILS ABSOLUTE AUTO 0.04 K/mm3 (0.00-0.23); BASOPHILS PERCENT AUTO 0 % (0-2); EOSINOPHILS ABSOLUTE AUTO 0.03 K/mm3 (0.00-0.68); EOSINOPHILS PERCENT AUTO 0 % (0-6); Hematocrit 41.1 % (37.0-53.0); Hemoglobin 14.1 g/dL (13.5-17.5); IMMATURE GRAN ABSOLUTE AUTO 0.05 K/mm3 (0.00-0.10); IMMATURE GRAN PERCENT AUTO 0 % (0-1); LYMPHOCYTES ABSOLUTE AUTO 1.49 K/mm3 (0.84-5.20); LYMPHOCYTES PERCENT AUTO 12 % (21-46); MONOCYTES ABSOLUTE AUTO 0.81 K/mm3 (0.16-1.47); MONOCYTES PERCENT AUTO 7 % (4-13); Mean Corpuscular HGB 31.2 pg (26.0-34.0); Mean Corpuscular HGB Conc 34.3 g/dL (31.5-36.5); Mean Corpuscular Volume 91 fL (80-100); Mean Platelet Volume 9.8 fL (9.1-12.4); NEUTROPHILS ABSOLUTE AUTO 10.02 K/mm3 (1.96-9.15); NEUTROPHILS PERCENT AUTO 81 % (41-73); Platelet Count 188 K/mm3 (150-400); RDW Standard Deviation 40.3 fL (35.1-46.3); Red Blood Cell Count 4.52 M/mm3 (4.30-5.90); White Blood Cell Count 12.44 K/mm3 (4.00-11.30)
[2023-04-20 14:07] LABS: Albumin, Blood 3.6 g/dL (3.4-5.0); Albumin/Globulin Ratio 0.9 (0.8-1.8); Bilirubin, Total 1.5 mg/dL (0.1-1.0); Bun/Creatinine Ratio 29.6 (12.0-20.0); Calcium, Blood 9.2 mg/dL (8.5-10.1); Creatinine, Blood 1.15 mg/dL (0.60-1.20); Globulin, Blood 3.8 g/dL (2.2-4.0); Total Protein, Blood 7.4 g/dL (6.4-8.2)
[2023-04-20 15:30] VITALS: BP 138/67
== END 2023-04-20 15:50 | disposition home or self-care (01) ==
LOC: ER 12:35
PROVIDERS: Emergency Medicine
DX: R06.00 Dyspnea, unspecified (principal)
CPT/HCPCS: 71046; 80053; 83880; 84484; 85025; 93005; 93010; 99285-25

== ENCOUNTER → 2023-09-12 | Outpatient (CLI) | payer MEDICARE, OTHER ==
[~2023-09-12] MED LIST changes: +ATORVASTATIN CA20 MG PO; +KLOR-CON 1010 ME9 PO
[2023-09-12 13:26] LABS: BASOPHILS ABSOLUTE AUTO 0.04 K/mm3 (0.00-0.23); BASOPHILS PERCENT AUTO 1 % (0-2); EOSINOPHILS ABSOLUTE AUTO 0.09 K/mm3 (0.00-0.68); EOSINOPHILS PERCENT AUTO 1 % (0-6); Hemoglobin 16.1 g/dL (13.5-17.5); IMMATURE GRAN ABSOLUTE AUTO 0.01 K/mm3 (0.00-0.10); IMMATURE GRAN PERCENT AUTO 0 % (0-1); LYMPHOCYTES ABSOLUTE AUTO 1.56 K/mm3 (0.84-5.20); LYMPHOCYTES PERCENT AUTO 23 % (21-46); MONOCYTES ABSOLUTE AUTO 0.36 K/mm3 (0.16-1.47); MONOCYTES PERCENT AUTO 5 % (4-13); Mean Corpuscular HGB 31.3 pg (26.0-34.0); Mean Corpuscular HGB Conc 34.3 g/dL (31.5-36.5); Mean Corpuscular Volume 91 fL (80-100); Mean Platelet Volume 9.2 fL (9.1-12.4); NEUTROPHILS ABSOLUTE AUTO 4.76 K/mm3 (1.96-9.15); NEUTROPHILS PERCENT AUTO 70 % (41-73); Platelet Count 247 K/mm3 (150-400); RDW Coefficient Variation 12.7 % (11.7-14.2); RDW Standard Deviation 41.9 fL (35.1-46.3); Red Blood Cell Count 5.14 M/mm3 (4.30-5.90); White Blood Cell Count 6.82 K/mm3 (4.00-11.30)
[2023-09-12 13:38] LABS: Albumin, Blood 4.1 g/dL (3.4-5.0); Albumin/Globulin Ratio 1.1 (0.8-1.8); Bilirubin, Total 1.1 mg/dL (0.1-1.0); Bun/Creatinine Ratio 12.9 (12.0-20.0); Calcium, Blood 9.7 mg/dL (8.5-10.1); Creatinine, Blood 1.4 mg/dL (0.60-1.20); Globulin, Blood 3.6 g/dL (2.2-4.0); Potassium, Blood 4.2 mmol/L (3.5-5.5); Total Protein, Blood 7.7 g/dL (6.4-8.2)
== END ==
LOC: LAB 13:21 → LAB SHORT 13:21
PROVIDERS: Family Medicine
DX: R06.00 Dyspnea, unspecified (principal)
CPT/HCPCS: 80053; 84484; 85025; 85379

== ENCOUNTER 2023-10-31 14:37 | Emergency (ER) | payer MEDICARE, OTHER ==
[~2023-10-31] VITALS: Ht 182.9 cm; Wt 87.1 kg
[2023-10-31 15:46] LABS: Albumin, Blood 3.6 g/dL (3.4-5.0); Albumin/Globulin Ratio 1.1 (0.8-1.8); Bilirubin, Total 0.6 mg/dL (0.1-1.0); Bun/Creatinine Ratio 22.7 (12.0-20.0); Calcium, Blood 9.5 mg/dL (8.5-10.1); Creatinine, Blood 0.93 mg/dL (0.60-1.20); Globulin, Blood 3.2 g/dL (2.2-4.0); Potassium, Blood 4.4 mmol/L (3.5-5.5); Total Protein, Blood 6.8 g/dL (6.4-8.2)
[2023-10-31 15:51] LABS: BASOPHILS ABSOLUTE AUTO 0.04 K/mm3 (0.00-0.23); BASOPHILS PERCENT AUTO 1 % (0-2); EOSINOPHILS ABSOLUTE AUTO 0.09 K/mm3 (0.00-0.68); EOSINOPHILS PERCENT AUTO 1 % (0-6); Hematocrit 39.1 % (37.0-53.0); Hemoglobin 13.5 g/dL (13.5-17.5); IMMATURE GRAN ABSOLUTE AUTO 0.03 K/mm3 (0.00-0.10); IMMATURE GRAN PERCENT AUTO 0 % (0-1); LYMPHOCYTES ABSOLUTE AUTO 1.72 K/mm3 (0.84-5.20); LYMPHOCYTES PERCENT AUTO 21 % (21-46); MONOCYTES ABSOLUTE AUTO 0.52 K/mm3 (0.16-1.47); MONOCYTES PERCENT AUTO 6 % (4-13); Mean Corpuscular HGB 31.5 pg (26.0-34.0); Mean Corpuscular HGB Conc 34.5 g/dL (31.5-36.5); Mean Corpuscular Volume 91 fL (80-100); Mean Platelet Volume 9.6 fL (9.1-12.4); NEUTROPHILS ABSOLUTE AUTO 5.68 K/mm3 (1.96-9.15); NEUTROPHILS PERCENT AUTO 70 % (41-73); Platelet Count 222 K/mm3 (150-400); RDW Standard Deviation 43.2 fL (35.1-46.3); Red Blood Cell Count 4.29 M/mm3 (4.30-5.90); White Blood Cell Count 8.08 K/mm3 (4.00-11.30)
[2023-10-31 18:30] VITALS: BP 137/70
== END 2023-10-31 18:53 | disposition home or self-care (01) ==
LOC: ER 14:37
PROVIDERS: Emergency Medicine
DX: R07.9 Chest pain, unspecified (principal); R06.02 Shortness of breath; M19.90 Unspecified osteoarthritis, unspecified site; Z86.718 Personal history of other venous thrombosis and embolism; Z79.82 Long term (current) use of aspirin; Z79.899 Other long term (current) drug therapy
CPT/HCPCS: 71046; 71260; 80053; 83880; 84484; 85025; 93005; 93010; 99285-25; Q9967

== ENCOUNTER 2024-12-01 09:11 | Emergency (ER) | payer MEDICARE, OTHER ==
[~2024-12-01] VITALS: Ht 182.9 cm; Wt 81.7 kg
[~2024-12-01 09:11] MED LIST changes: +AMOCLA875 PO; +METF500 PO
[2024-12-01] MEDS ORDERED: Lactated Ringer's 1,000 ML IV ONE (10:05)
[2024-12-01 10:09] LABS: BASOPHILS ABSOLUTE AUTO 0.06 K/mm3 (0.00-0.23); BASOPHILS PERCENT AUTO 1 % (0-2); EOSINOPHILS ABSOLUTE AUTO 0.16 K/mm3 (0.00-0.68); EOSINOPHILS PERCENT AUTO 3 % (0-6); Hematocrit 40.1 % (37.0-53.0); Hemoglobin 13.7 g/dL (13.5-17.5); IMMATURE GRAN ABSOLUTE AUTO 0.02 K/mm3 (0.00-0.10); IMMATURE GRAN PERCENT AUTO 0 % (0-1); LYMPHOCYTES ABSOLUTE AUTO 1.53 K/mm3 (0.84-5.20); LYMPHOCYTES PERCENT AUTO 27 % (21-46); MONOCYTES ABSOLUTE AUTO 0.41 K/mm3 (0.16-1.47); MONOCYTES PERCENT AUTO 7 % (4-13); Mean Corpuscular HGB 31.6 pg (26.0-34.0); Mean Corpuscular HGB Conc 34.2 g/dL (31.5-36.5); Mean Corpuscular Volume 92 fL (80-100); Mean Platelet Volume 9.5 fL (9.1-12.4); NEUTROPHILS ABSOLUTE AUTO 3.52 K/mm3 (1.96-9.15); NEUTROPHILS PERCENT AUTO 62 % (41-73); Platelet Count 168 K/mm3 (150-400); RDW Coefficient Variation 12.7 % (11.7-14.2); RDW Standard Deviation 43.4 fL (35.1-46.3); Red Blood Cell Count 4.34 M/mm3 (4.30-5.90)
[2024-12-01 10:23] LABS: Albumin, Blood 3.4 g/dL (3.4-5.0); Albumin/Globulin Ratio 1.3 (0.8-1.8); Bilirubin, Total 1.1 mg/dL (0.1-1.0); Calcium, Blood 8.4 mg/dL (8.5-10.1); Globulin, Blood 2.7 g/dL (2.2-4.0); Potassium, Blood 3.9 mmol/L (3.5-5.5); Total Protein, Blood 6.1 g/dL (6.4-8.2)
[2024-12-01 10:40] VITALS: BP 120/58
== END 2024-12-01 12:18 | disposition home or self-care (01) ==
LOC: ER 09:11
PROVIDERS: Emergency Medicine
DX: R00.1 Bradycardia, unspecified (principal)
CPT/HCPCS: 80053; 84484; 85025; 93005; 93010; 96360; 99284-25; J7120

== ENCOUNTER 2025-08-23 09:53 | Inpatient (IN) | payer MEDICARE, OTHER ==
[2025-08-23] VITALS (7 sets, daily range): BP systolic 139–173; BP diastolic 57–85
[~2025-08-23] VITALS: Ht 182.9 cm; Wt 78.0 kg
[2025-08-23 11:08] LABS: Alanine Aminotransfer (ALT/SGP 15.0 U/L (12-78); Albumin, Blood 3.0 g/dL (3.4-5.0); Albumin/Globulin Ratio 0.9 (0.8-1.8); Anion Gap 5.0 mmol/L (3-11); Aspartate Aminotrans (AST/SGOT 21.0 U/L (12-37); Bilirubin, Total 1.2 mg/dL (0.1-1.0); Blood Urea Nitrogen 18.0 mg/dL (8-24); CO2, Blood 29.0 mmol/L (21-32); Calcium, Blood 8.8 mg/dL (8.5-10.1); Chloride, Blood 107.0 mmol/L (98-108); Creatinine, Blood 0.75 mg/dL (0.60-1.20); Globulin, Blood 3.2 g/dL (2.2-4.0); Glucose, Blood 154.0 mg/dL (70-99); Potassium, Blood 4.3 mmol/L (3.5-5.5); Sodium, Blood 137.0 mmol/L (136-145); Total Protein, Blood 6.2 g/dL (6.4-8.2)
[2025-08-23 13:46] LABS: BASOPHILS ABSOLUTE AUTO 0.04 K/mm3 (0.00-0.23); BASOPHILS PERCENT AUTO 1 % (0-2); EOSINOPHILS ABSOLUTE AUTO 0.14 K/mm3 (0.00-0.68); EOSINOPHILS PERCENT AUTO 3 % (0-6); Hematocrit 36.7 % (37.0-53.0); Hemoglobin 12.4 g/dL (13.5-17.5); IMMATURE GRAN ABSOLUTE AUTO 0.03 K/mm3 (0.00-0.10); IMMATURE GRAN PERCENT AUTO 1 % (0-1); LYMPHOCYTES ABSOLUTE AUTO 0.98 K/mm3 (0.84-5.20); LYMPHOCYTES PERCENT AUTO 18 % (21-46); MONOCYTES ABSOLUTE AUTO 0.45 K/mm3 (0.16-1.47); MONOCYTES PERCENT AUTO 8 % (4-13); Mean Corpuscular HGB Conc 33.8 g/dL (31.5-36.5); Mean Corpuscular Volume 92 fL (80-100); NEUTROPHILS ABSOLUTE AUTO 3.92 K/mm3 (1.96-9.15); NEUTROPHILS PERCENT AUTO 71 % (41-73); NRBC ABSOLUTE 0.00 K/mm3 (0.00-0.02); NRBC Auto 0.0 /100 WBC (0.0-0.2); Platelet Count 171 K/mm3 (150-400); RDW Coefficient Variation 12.2 % (11.7-14.2); RDW Standard Deviation 41.1 fL (35.1-46.3)
[2025-08-23] MEDS ORDERED: FLU VACC TS2025(65UP)/MF59C/PF 45 MCG/0.5 ML SYRINGE IM SCH (16:10)
[2025-08-23] MEDS ORDERED: Inderal60 MG PO (18:32)
[2025-08-23] MEDS ORDERED: OXYC10TA19 PO (18:33)
[2025-08-23] MEDS ORDERED: ELIQUIS5 M2 PO (18:35)
[2025-08-23] MEDS ORDERED: Norco 10-325 T1 EACH PO (18:48)
--- NOTE | 2025-08-23 19:07 | NUR ---
PATIENT ARRIVAL TO PCU AT 1610. USED SLIDE SHEET TO TRANSFER. PATIENT ALERT AND ORIENTED X3. POOR HISTORIAN. MOVING ALL EXTREMITIES AND FOLLOWING COMMANDS. COMPLAINS OF 4/10 DULL CHEST PAIN WITH INTERMIT RIGHT ARM SORNESS. TELE SHOWING SINUS NATY 50-60'S. SBP 140'S. NO EDEMA NOTED. SCD'S IN PLACE. LR INFUSING PER EMAR. DR. MONTEZ CALLED AND UPDATED ON 519 TROPONIN. PATIENT OKAY TO EAT AT THIS TIME. ON ROOM AIR, LUNG SOUNDS CLEAR AND DIM IN BASES. DENIES OXYGEN USE AT HOME. BOWEL TONES PRESENT. DENIES ABDOMINAL PAIN/NAUSEA. SCAB AND REDNESS NOTED TO COCCYX. SEE CHART PHOTO. BEAU OSUNA CALLED TO UPDATE ON PCU ADMISSION. MED REC COMPLETED WITH SON. BED ALARM IN PLACE. CALL LIGHT IN REACH. ORIENTED TO ROOM/UNIT/CALL LIGHT.
[2025-08-23 20:16] LABS: Prothrombin Time Results 12.0 Sec (9.7-11.5)
[2025-08-23] MEDS ORDERED: Heparin Sodium,Porcine/0.5 NS 500 ML IV SCH (20:30)
[2025-08-23] MEDS ORDERED: Insulin Human Lispro 100 Units/ML 3ML Syringe SC SCH (21:00)
--- NOTE | 2025-08-23 21:38 | NUR ---
MD TO BEDSIDE @ APPROX 2039 PROVIDED PT WITH FOOD PT STATING CHEST PAIN WAS 4/10, PT WAS HALF WAY THROUGH SANDWICH WITH INCREASE IN CHEST PAIN 8/10, PT BP ELEVATED DURING VITALS/ PROVIDED PT WITH NITRO PER ORDERS/ PLACED PT ON 2L O2 TO ATTEMPT TO RELIEF CHEST PAIN/ PT STATED 9/10 CHEST PAIN THAT RADIATED DOWN ARMS/ NO CHANGES VISIBLE ON TELE, PROVIDED PT WITH THREE DOSES OF NITRO WITHOUT RELIEF OF CHEST PAIN, THIS RN CALLED DR. MONTEZ/ EKG OBTAINED PER MD ORDERMELIDA TO BEDSIDE @ APPROX 2039/ REVIEWED EKG AND DISCUSSED OPTIONS WITH PATIENT / HEPARIN STARTED PER ORDERS, PT RETURNED TO NPO STATUS/ PLAN OF CARE CONTINUES, @ APPOROX 2049 PT REPORTING IMPROVEMENT OF CHEST PAIN.
[2025-08-24 03:00] VITALS: BP 160/76
[2025-08-24 03:05] LABS: BASOPHILS ABSOLUTE AUTO 0.04 K/mm3 (0.00-0.23); BASOPHILS PERCENT AUTO 1 % (0-2); EOSINOPHILS ABSOLUTE AUTO 0.28 K/mm3 (0.00-0.68); EOSINOPHILS PERCENT AUTO 5 % (0-6); Hematocrit 35.6 % (37.0-53.0); Hemoglobin 12.2 g/dL (13.5-17.5); IMMATURE GRAN ABSOLUTE AUTO 0.01 K/mm3 (0.00-0.10); IMMATURE GRAN PERCENT AUTO 0 % (0-1); LYMPHOCYTES ABSOLUTE AUTO 1.26 K/mm3 (0.84-5.20); LYMPHOCYTES PERCENT AUTO 23 % (21-46); MONOCYTES ABSOLUTE AUTO 0.47 K/mm3 (0.16-1.47); MONOCYTES PERCENT AUTO 9 % (4-13); Mean Corpuscular HGB Conc 34.3 g/dL (31.5-36.5); Mean Corpuscular Volume 91 fL (80-100); NEUTROPHILS ABSOLUTE AUTO 3.37 K/mm3 (1.96-9.15); NEUTROPHILS PERCENT AUTO 62 % (41-73); NRBC ABSOLUTE 0.00 K/mm3 (0.00-0.02); NRBC Auto 0.0 /100 WBC (0.0-0.2); Platelet Count 147 K/mm3 (150-400); RDW Coefficient Variation 12.0 % (11.7-14.2); RDW Standard Deviation 39.9 fL (35.1-46.3)
[2025-08-24 03:34] LABS: Alanine Aminotransfer (ALT/SGP 15.0 U/L (12-78); Albumin, Blood 3.0 g/dL (3.4-5.0); Albumin/Globulin Ratio 1.1 (0.8-1.8); Anion Gap 6.0 mmol/L (3-11); Aspartate Aminotrans (AST/SGOT 16.0 U/L (12-37); Bilirubin, Total 1.0 mg/dL (0.1-1.0); Blood Urea Nitrogen 15.0 mg/dL (8-24); CO2, Blood 29.0 mmol/L (21-32); Calcium, Blood 8.4 mg/dL (8.5-10.1); Chloride, Blood 109.0 mmol/L (98-108); Creatinine, Blood 0.79 mg/dL (0.60-1.20); Globulin, Blood 2.8 g/dL (2.2-4.0); Glucose, Blood 112.0 mg/dL (70-99); Magnesium, Blood 1.6 mg/dL (1.6-2.4); Potassium, Blood 3.5 mmol/L (3.5-5.5); Sodium, Blood 140.0 mmol/L (136-145); Total Protein, Blood 5.8 g/dL (6.4-8.2)
[2025-08-24] MEDS ORDERED: Clarify Drug Order XX ONE (03:35)
--- NOTE | 2025-08-24 05:59 | NUR ---
SHIFT SUMMARY PT A&O X4, FORGETFUL AT TIMES, ABLE TO MAKE NEEDS KNOWN, MOVING ALL EXTREMITIES WITH PURPOSE, REPOSITIONING SELF IN BED, CALLS APPROPRIATELY. CONTINUOUS SPO2, SPO2 GREATER THAN 92% ON RA, NO SIGNS OF RESPIRATORY DISTRESS NOTED, PT DENIES SOB T/O THIS SHIFT. CONTINUOUS TELE MONITORING, SINUS 50-60 S, SBP ELEVATED 140-170 S/ MD AWARE, CAP REFILL WNL, PULSES PRESENT T/O, PT REPORTING INCREASED AMOUNT OF CHEST PAIN AT THE BEGINNING OF THIS SHIFT/ VIEW THIS RN S PREVIOUS NOTE, PT HAS SINCE REPORTED 2-4/10 CHEST PAIN. BOWEL TONES PRESENT IN ALL 4Q, PT DENIES FEELINGS OF CONSTIPATION. VOIDING IND, URINE KANDY AT START OF SHIFT HAS CLEARED TO YELLOW BED LOWEST POSITION, CALL LIGHT IN REACH, AWAITING TO GIVE REPORT TO ONCOMING RN.
[2025-08-24 07:02] VITALS: BP 161/73
--- NOTE | 2025-08-24 09:24 | NUR ---
AM NOTE: PATIENT ALERT AND ORIENTED X3. POOR HISTORIAN AND FORGETFUL. BED ALARM IN USE. MOVING ALL EXTREMITIES. DENIES PAIN AT THIS TIME. PERRLA. HARD OF HEARING. UP WITH SBA TO USE URINAL. BEAU OSUNA AT BEDSIDE THIS MORNING AND UPDATED BY THIS RN. ON ROOM AIR, LUNG SOUNDS CLEAR. DENIES SOB/COUGH. EVEN AND UNLABORED RESPIRATIONS. TELE SHOWING SB/SR WITH HR 50-60'S. DENIES CHEST PAIN/PRESSURE/PALPITATIONS THIS MORNING. HEPARIN GTT INFUSING PER EMAR. NO EDEMA NOTED. ECHO COMPLETED THIS MORNING. NPO AT THIS TIME UNTIL CLEARED BY CARDIOLOGY. BOWEL TONES PRESENT. DENIES ABDOMINAL PAIN/NAUSEA. ATTENDS IN PLACE. USING URINAL WITH SBA. SKIN PALE WITH SCATTERED BRUISING. SCAB NOTED TO LEFT BUTTOCK. SEE CHART PHOTO. RED BUT BLANCHABLE COCCYX. SPINAL STIMULATOR PLACED ABOUT 6 WEEKS AGO PER SON, HEALED SCAR TO LEFT LOWER BACK. CALL LIGHT IN REACH. BED ALARM IN PLACE. BEAU OSUNA REMAINS AT BEDSIDE. DR. ODONNELL TO BEDSIDE THIS MORNING. THIS RN PRESENT FOR MD ROUNDS. NO NEW ORDERS FOR THIS RN TO PLACE.
[2025-08-24] MEDS ORDERED: Dose Adjust by Pharmacy XX STA (10:02)
[2025-08-24 11:03] VITALS: BP 149/82
--- NOTE | 2025-08-24 11:17 | NUR ---
ECHO RESULTED. DR. MONTEZ CALLED TO INQUIRE ABOUT DIET. PERMISSION TO FEED PATIENT AT THIS TIME. DR. ODONNELL UPDATED WELL. SON THAO REMAINS AT BEDSIDE.
[2025-08-24 15:29] VITALS: BP 129/79
--- NOTE | 2025-08-24 15:44 | NUR ---
DR. MONTEZ TO BEDSIDE. THIS RN PRESENT FOR MD ROUNDING. NO ORDERS FOR THIS RN TO PLACE. PLAN TO CONTINUE HEPARIN GTT AND MONITOR FOR ANY CHEST PAIN. PATIENT OKAY TO CONTINUE DIET. CALL LIGHT IN REACH AND BED ALARM IN PLACE.
[2025-08-24 16:26] LABS: Alanine Aminotransfer (ALT/SGP 17.0 U/L (12-78); Albumin, Blood 3.1 g/dL (3.4-5.0); Albumin/Globulin Ratio 1.0 (0.8-1.8); Anion Gap 10.0 mmol/L (3-11); Aspartate Aminotrans (AST/SGOT 16.0 U/L (12-37); Bilirubin, Total 0.9 mg/dL (0.1-1.0); Blood Urea Nitrogen 13.0 mg/dL (8-24); CO2, Blood 25.0 mmol/L (21-32); Calcium, Blood 8.6 mg/dL (8.5-10.1); Chloride, Blood 108.0 mmol/L (98-108); Creatinine, Blood 0.65 mg/dL (0.60-1.20); Globulin, Blood 3.0 g/dL (2.2-4.0); Glucose, Blood 127.0 mg/dL (70-99); Potassium, Blood 3.5 mmol/L (3.5-5.5); Sodium, Blood 139.0 mmol/L (136-145); Total Protein, Blood 6.1 g/dL (6.4-8.2)
--- NOTE | 2025-08-24 17:28 | NUR ---
SON THAO AND FAMILY AT BEDSIDE. THIS RN PROVIDED UPDATE TO FAMILY. PATIENT SITTING UP IN BED CHEST PAIN FREE EATING DINNER AT THIS TIME. REMAINS ON ROOM AIR. HR 50-60'S. UP WITH SBA TO USE URINAL. ATTENDS IN PLACE. BED ALARM IN PLACE. DENIES NEEDS AT THIS TIME.
[2025-08-24 20:16] VITALS: BP 154/63
[2025-08-24 23:44] VITALS: BP 159/87
[2025-08-25 00:33] LABS: BASOPHILS ABSOLUTE AUTO 0.03 K/mm3 (0.00-0.23); BASOPHILS PERCENT AUTO 1 % (0-2); EOSINOPHILS ABSOLUTE AUTO 0.18 K/mm3 (0.00-0.68); EOSINOPHILS PERCENT AUTO 3 % (0-6); Hematocrit 37.1 % (37.0-53.0); Hemoglobin 12.7 g/dL (13.5-17.5); IMMATURE GRAN ABSOLUTE AUTO 0.02 K/mm3 (0.00-0.10); IMMATURE GRAN PERCENT AUTO 0 % (0-1); LYMPHOCYTES ABSOLUTE AUTO 1.28 K/mm3 (0.84-5.20); LYMPHOCYTES PERCENT AUTO 20 % (21-46); MONOCYTES ABSOLUTE AUTO 0.50 K/mm3 (0.16-1.47); MONOCYTES PERCENT AUTO 8 % (4-13); Mean Corpuscular HGB Conc 34.2 g/dL (31.5-36.5); Mean Corpuscular Volume 89 fL (80-100); NEUTROPHILS ABSOLUTE AUTO 4.57 K/mm3 (1.96-9.15); NEUTROPHILS PERCENT AUTO 69 % (41-73); NRBC ABSOLUTE 0.00 K/mm3 (0.00-0.02); NRBC Auto 0.0 /100 WBC (0.0-0.2); Platelet Count 162 K/mm3 (150-400); RDW Coefficient Variation 12.0 % (11.7-14.2); RDW Standard Deviation 39.2 fL (35.1-46.3)
[2025-08-25] MEDS ORDERED: Clarify Drug Order XX ONE (01:15)
[2025-08-25 03:45] VITALS: BP 137/99
--- NOTE | 2025-08-25 06:11 | NUR ---
SHIFT SUMMARY PT A&O X3, FORGETFUL AT TIMES, ABLE TO MAKE NEEDS KNOWN, MOVING ALL EXTREMITIES WITH PURPOSE, REPOSITIONING SELF IN BED, SBA TO BSC. CONTINUOUS SPO2, SPO2 GREATER THAN 92% ON RA, NO SIGNS OF RESPIRATORY DISTRESS NOTED, PT DENIES SOB T/O THIS SHIFT. CONTINUOUS TELE MONITORING, SINUS 50-60 S, BP STABLE WITH MAP GREATER THAN 65, CAP REFILL WNL, PULSES PRESENT T/O, PT DENIES CHEST P/P T/O THIS SHIFT. BOWEL TONES PRESENT IN ALL 4Q, PT DENIES FEELINGS OF CONSTIPATION, PT HAD ON EPISODE OF NAUSEA THAT QUICKLY PASSED ON HIS OWN. VOIDING IND, URINE YELLOW BED LOWEST POSITION, CALL LIGHT IN REACH, AWAITING TO GIVE REPORT TO ONCOMING RN.
[2025-08-25] MEDS ORDERED: Dose Adjust by Pharmacy XX STA ×2 (07:38→13:56)
[2025-08-25 08:25] VITALS: BP 120/58
[2025-08-25 12:26] VITALS: BP 124/66
[2025-08-25 16:20] LABS: Alanine Aminotransfer (ALT/SGP 16.0 U/L (12-78); Albumin, Blood 3.0 g/dL (3.4-5.0); Albumin/Globulin Ratio 1.0 (0.8-1.8); Anion Gap 9.0 mmol/L (3-11); Aspartate Aminotrans (AST/SGOT 19.0 U/L (12-37); Bilirubin, Total 0.8 mg/dL (0.1-1.0); Blood Urea Nitrogen 14.0 mg/dL (8-24); CO2, Blood 25.0 mmol/L (21-32); Calcium, Blood 8.6 mg/dL (8.5-10.1); Chloride, Blood 109.0 mmol/L (98-108); Creatinine, Blood 0.81 mg/dL (0.60-1.20); Globulin, Blood 2.9 g/dL (2.2-4.0); Glucose, Blood 119.0 mg/dL (70-99); Potassium, Blood 3.6 mmol/L (3.5-5.5); Sodium, Blood 139.0 mmol/L (136-145); Total Protein, Blood 5.9 g/dL (6.4-8.2)
[2025-08-25 17:27] VITALS: BP 148/72
--- NOTE | 2025-08-25 18:25 | NUR ---
SHIFT SUMMARY PT HAS BEEN A&O X4 UNTIL ABOUT AN HOUR AGO. AT THIS TIME, HE IS FORGETFUL, NOT USING CALL LIGHT. PT HAS HX OF . BED ALARM IN USE. COOPERATIVE WITH CARE, AND ABLE TO EXPRESS NEEDS. PT REQUIRES 1 ASSIST TO TRANSFER. SATS > 94% MAINTAINED T/O SHIFT ON ROOM AIR. NO C/O SOB. SR 60s MAINTAINED W/ STABLE BPs. NO C/O CHEST PAIN/PRESSURE THROUGHOUT SHIFT. HEPARIN GTT INFUSING. PER DR. MONTEZ, PT TO BE TRIALED OFF GTT AT 2037. IF CHEST PAIN RETURNS, DRIP TO BE RESTARTED, DR. MONTEZ TO BE NOTIFIED. PT TO BE NPO AT MIDNIGHT EITHER WAY IN CASE OF ANGIO. VISITED BY THERAPY DOG TODAY. SON HAS BEEN AT BEDSIDE AND UPDATED ON CARE. SEE NOTES FOR UPDATES.
[2025-08-25 20:09] VITALS: BP 163/81
[2025-08-25 23:45] VITALS: BP 161/73
--- NOTE | 2025-08-26 02:41 | NUR ---
SHIFT SUMMARY PT IS A&OX4 WITH INTERMITTENT CONFUSION ABLE TO VERBALIZE NEEDS AND CALLS APPROPRIATELY. VSS ON RA SPO2 >95%.HES NSR IN THE 60' S. HIS HEPARIN DRIP WAS REMOVED AT 2043. NO C/O CHEST PAIN OR PRESSURE SINCE HE WAS TAKEN OFF. BLOOD SUGARS ARE DONE AC AND HS WAS 129. HES BEEN NPO SINCE MIDNIGHT JUST IN CASE A ANGIO IS NEEDED. ABLE TO TAKE MEDS WHOLE IN WATER. REQUIRES 1 PERSON ASSIST WITH WALKER GETS UP TO COMMODE AND USES URINAL, HE HAD A BM THIS SHIFT. . BED IN LOWEST POSITION,, CALLS APPROPRIATELY AND IS ABLE TO ADVOCATE NEEDS EFFECTIVELY.
[2025-08-26 03:43] VITALS: BP 161/99
[2025-08-26 04:19] LABS: BASOPHILS ABSOLUTE AUTO 0.04 K/mm3 (0.00-0.23); BASOPHILS PERCENT AUTO 1 % (0-2); EOSINOPHILS ABSOLUTE AUTO 0.22 K/mm3 (0.00-0.68); EOSINOPHILS PERCENT AUTO 4 % (0-6); Hematocrit 38.2 % (37.0-53.0); Hemoglobin 13.2 g/dL (13.5-17.5); IMMATURE GRAN ABSOLUTE AUTO 0.02 K/mm3 (0.00-0.10); IMMATURE GRAN PERCENT AUTO 0 % (0-1); LYMPHOCYTES ABSOLUTE AUTO 1.19 K/mm3 (0.84-5.20); LYMPHOCYTES PERCENT AUTO 22 % (21-46); MONOCYTES ABSOLUTE AUTO 0.43 K/mm3 (0.16-1.47); MONOCYTES PERCENT AUTO 8 % (4-13); Mean Corpuscular HGB Conc 34.6 g/dL (31.5-36.5); Mean Corpuscular Volume 90 fL (80-100); NEUTROPHILS ABSOLUTE AUTO 3.55 K/mm3 (1.96-9.15); NEUTROPHILS PERCENT AUTO 65 % (41-73); NRBC ABSOLUTE 0.00 K/mm3 (0.00-0.02); NRBC Auto 0.0 /100 WBC (0.0-0.2); Platelet Count 187 K/mm3 (150-400); RDW Coefficient Variation 12.1 % (11.7-14.2); RDW Standard Deviation 39.3 fL (35.1-46.3)
[2025-08-26 08:03] VITALS: BP 122/77
[2025-08-26] MEDS ORDERED: CLOP75 PO (11:08)
[2025-08-26] MEDS ORDERED: OXYC10ER PO (11:13)
[2025-08-26 11:28] VITALS: BP 124/53
--- NOTE | 2025-08-26 11:43 | NUR ---
MORNING/DISCHARGE SUMMARY THE PT HAS BEEN A&OX3; 1P ASSIST W/ WW; AND ABLE TO MAKE THEIR NEEDS KNOWN. THE PT DOES HAVE A CHAIR ALARM INTACT D/T OCCASIONAL FORGETFULNESS. THIS MORNING HE HAS BEEN CALLING APPROPRAITELY, BUT DOES SUNDOWN IN THE EVENING. THIS RN DID AMBULATE WITH THE PT THIS MORNING PER CARDIOLOGY REQUEST AND THE PT WAS ASYMPTOMATIC WITH AMBULATION. ON TELE HER HAS BEEN SR 60'S-70'S, AND BP STABLE. THE PT WAS RESTARTED ON HIS HOME ELIQUIS AND STARTED ON PLAVIX THIS MORNING PER CARDIOLOGY. THE PT HAS BEEN ON RA, DENIES SOB. HE HAS BEEN WITHOUT ANY PAIN THIS SHIFT. HIS DAUGHTER AND SON WERE PRESENT ON DISCHARGE AND ALL QUESTIONS ANSWERED. THE PT'S NEW MEDICATION WAS FAXED TO [facility] PER PT REQUEST. VITAL SIGNS HAVE REMAINED STABLE, PIV'S D/C'D BY [facility]. THE PT WITH ALL HIS BELONGINGS WERE WHEELED OUT BY THE [facility]. NO FURTHER NOTES FROM THIS NURSE.
== END 2025-08-26 11:45 | disposition home or self-care (01) | DRG 281 ==
LOC: ER 09:53 → PCU 09:54
PROVIDERS: Family Medicine; Internal Medicine Cardiovascular Disease; Physician Assistant; ADMIT Family Medicine
DX: I21.4 Non-ST elevation (NSTEMI) myocardial infarction (principal); I50.32 Chronic diastolic (congestive) heart failure; E78.5 Hyperlipidemia, unspecified; Z86.711 Personal history of pulmonary embolism; Z79.01 Long term (current) use of anticoagulants; E11.9 Type 2 diabetes mellitus without complications; G89.29 Other chronic pain; M54.50 Low back pain, unspecified; I71.21 Aneurysm of the ascending aorta, without rupture
CPT/HCPCS: 36415; 71046; 80053; 82947; 83690; 83735; 84484; 85025; 85610; 85730; 93005; 93010; 93306; 99285-25; A9270; G0378; J1644; J7120